=== PATIENT | male | born 1955 | race Caucasian/White ===

== ENCOUNTER 2021-06-10 11:33 | Emergency (ER) | payer MEDICARE ==
[2021-06-10 11:49] VITALS: TEMP 98.6
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
[2021-06-10] MEDS ORDERED: BAMLANIVIMAB (EUA) 700 MG, ETESEVIMAB (EUA) 1,400 MG in SODIUM CHLORIDE 0.9% 50 ML IVPB ONE (13:30)
[2021-06-10 13:31] VITALS: BP 138/92; PULSE 83; RESP 16
[2021-06-10] MEDS ORDERED: SODIUM CHLORIDE 0.9% 50 ML IVPB ONE (14:00)
== END 2021-06-10 15:10 | disposition home or self-care (01) ==
LOC: EC 11:33
DX: R09.81 Nasal congestion (principal); Z87.891 Personal history of nicotine dependence; Z88.0 Allergy status to penicillin
CPT/HCPCS: 87636; 99283; J3490